=== PATIENT | male | born 1945 | race Caucasian/White ===

== ENCOUNTER 2020-02-03 00:40 | Outpatient (CLI) | payer MEDICARE, BC, OTHER, SELFPAY ==
[2020-02-03 17:08] LABS: SARS-CoV-2 RNA PCR Negative
== END 2020-02-03 00:41 | disposition home or self-care (01) ==
LOC: ANHCOVIDDT 00:41
PROVIDERS: PCP Internal Medicine; Visit Provider Orthopaedic Surgery
DX: Z01.812 Encounter for preprocedural laboratory examination (principal); Z20.828 Contact with and (suspected) exposure to other viral communicable diseases
CPT/HCPCS: 87635; C9803; U0003

== ENCOUNTER 2020-02-06 00:56 | Day surgery (SDC) | payer MEDICARE, BC, OTHER, SELFPAY ==
[2020-01-30 10:41] VITALS: BMI 32.9
[2020-02-06] VITALS (7 sets, daily range): BP systolic 94–136; BP diastolic 48–64; PULSE 73–100; RESP 10–18; TEMP 36–36.3; O2SAT 92–98
--- NOTE | ~2020-02-06 | XR_ITS ---
XR surgery orthopedic 02/06/2020 08:58 Indication: Right hallux valgus correction. Procedure: 3 fluoroscopic views of the right first toe. 10 seconds of fluoroscopy. Comparison: 12/22/2019 Findings: There are surgical changes consistent with right hallux valgus correction. There are associ ated soft tissue changes. Please refer to procedural report for details. Impression: 1: Surgical changes consistent with recent hallux valgus correction. Reviewed, dictated and finalized at location A. Impression: 1: Surgical changes consistent with recent hallux valgus correction.
[2020-02-06] MEDS: ACETAMINOPHEN 500 MG TABLET 1000 MG PO (06:31)
[2020-02-06] MEDS: LACTATED RINGERS 1,000 ML 30 ML IV CONT (06:32)
[2020-02-06] MEDS: KETOROLAC 15 MG/ML VIAL (*BKC) IV PUSH (06:32)
--- NOTE | 2020-02-06 07:01 | WPDANESEPPF ---
Anes - Initial Pre Proc Eval Procedure: Operation Date: 02/06/20 07:30 Proposed Procedures p Right Hallux Valgus Correction, First Metatarsal Osteotomy, Possible Phalangeal Osteotomy - Jorge Bain MD Date/Time: 02/06/20 07:01 Surgeon: Jorge Bain MD Pre Op Diagnosis: Rt Hallux Valgus Patient Data Age: 74 Gender: M Height: 6 ft Weight: 110.25 kg Allergies Allergy/AdvReac Type Severity Reaction Status Date / Time codeine Allergy Unknown Dizziness/HEART Verified 01/30/20 10:37 PALPATATIONS Home Medications Medication Instructions Recorded Confirmed Type acetaminophen-caffeine 500 mg-65 1 tablet PO PRN PRN 01/11/20 01/30/20 History mg tablet ascorbic acid (vitamin C) 500 mg 1,000 mg PO DAILY 01/11/20 01/30/20 History tablet cholecalciferol (vitamin D3) 25 25 mcg PO DAILY 01/11/20 01/30/20 History mcg (1,000 unit) capsule lisinopril 40 mg tablet 40 mg PO DAILY 01/11/20 01/30/20 History hhikfctesauu-fojkjiao-odonqq 1 tablet PO DAILY 01/11/20 01/30/20 History rosuvastatin 10 mg tablet 5 mg PO HS 01/11/20 01/30/20 History tamsulosin 0.4 mg capsule 0.4 mg PO HS 01/11/20 01/30/20 History vitamin B12 500 mcg-folic acid 400 1 tablet PO DAILY 01/11/20 01/30/20 History mcg tablet amlodipine 5 mg PO QAM 01/30/20 01/30/20 History Patient hx anesthesia problems: none Family hx anesthesia problems: none PMFSH Past Medical History Medical History Arthritis Chronic headaches Hallux valgus (acquired), right foot Heart beat abnormality HTN (hypertension) Seasonal allergies Skin cancer Sleep apnea Urinary frequency Family History Family History Mother Family history of diabetes mellitus in first degree relative Diabetes mellitus Hypertension Father Acute myocardial infarction Other Arthritis Cerebrovascular accident Family history of cardiovascular disease Heart disease Social History Social History Smoking packs per day: 1 Smoking cigarettes per day: 20.0 Years smoked: 45 Smoking pack-years: 45.00 Smoking status: Current every day smoker Tobacco type: cigarettes Alcohol intake: current Drinks per week: 2 Alcohol use details: HARD CIDSAMINA Substance use: unknown Living arrangements: with family Gender identity (if verbalized by the patient): Male Spiritual care concerns: No Anes - Eval Final PreProcedure Day of Procedure 02/06/20 07:01 Patient weight: obese Heart: regular rate and rhythm Lungs: clear to auscultation Airway: Mallampati scale class II Neurological: alert and oriented Last oral intake: >/= 8 hours ASA classification: III Emergent: no Anesthetic plan: proceed Anesthesia type and monitoring: general LMA and standard monitoring Informed Consent: The patient's anesthetic plan and its attendant risks and benefits were discussed with the patient/family/POA. Questions were solicited and answers provided to the satisfaction of the patient/family/POA.
--- NOTE | 2020-02-06 07:15 | WPDHPUPDATE1 ---
History and Physical Update Update Date/Time: 02/06/20 07:15 History and Physical has been reviewed, including an updated exam of the patient. There are NO changes in the patient's condition. Covid test negative. Risks, benefits, and alternatives have been discussed and questions answered. Patient agrees to proceed with procedure.
[2020-02-06] MEDS: ceFAZolin 2 GM/D5W 50 ML 2 GM/50 ML BAG IVPB (07:30)
--- NOTE | 2020-02-06 09:14 | PM.PROC ---
Procedure Note - Detailed Date of procedure: 02/06/20 Pre-op diagnosis: Rt Hallux Valgus Post-op diagnosis: same Procedure performed: RT hallux valgus correction- double osteotomy Description of procedure: OPERATIVE INDICATIONS: The patient is a 74 year-old man with right hallux valgus deformity, prominence of the medial eminence, and right foot pain. The patient has failed conservative treatment with shoe inserts, accommodative shoes, activity modifications and medication. The patient has pain with daily activity. Symptoms have caused restriction in the patient's activity. The patient presents for operative treatment. WHAT WAS DONE: After informed consent was given, the operative extremity was marked in the preoperative holding area. The patient received intravenous antibiotics. The patient was brought to the operating room where they underwent a general anesthetic by the anesthesia team. The patient was positioned supine on the operating room table. A time-out was performed confirming the patient, site of the surgery, and the plan for surgery. The right lower extremity was then prepped and draped in the usual sterile surgical fashion using ChloraPrep skin solution. Foot and ankle were exsanguinated and a calf tourniquet was inflated to 225 mmHg pressure. A longitudinal incision was then made along the medial border of the 1st ray centered over the medial eminence with a #15 blade knife. The previous incision was utilized. Hemostasis was controlled with electric cautery. The dorsal and plantar sensory nerves were identified and retracted bluntly. A medial capsulotomy was then performed. This was reflected off the medial eminence. The joint was inspected for evaluation of degenerative changes. A lateral release was then performed through the joint with a #15 blade knife. The medial eminence was then resected with a sagittal saw in line with the medial border of the foot. Correction of the deformity was performed with a chevron-shaped osteotomy performed with sagittal saw from medial to lateral through the distal portion of the 1st metatarsal. The lateral portion of the bone cut was completed with an osteotome to protect the soft tissue. The capital fragment was then translated laterally and impacted on to the 1st metatarsal shaft. Lateral translation and impaction corrected both hallux valgus deformity and correction of the distal metatarsal articular angle. Temporary fixation was performed and alignment was verified with image intensification. Hallux valgus angle correction, intermetatarsal angle correction and distal metatarsal articular angle were verified. Fixation was achieved with 2.0 millimeter bioabsorbable pins. Two pins were utilized. Image intensification confirmed final alignment. Rotation was verified visually. The wound was then thoroughly irrigated with antibiotic solution. The capsule was repaired through a drill hole in the distal 1st metatarsal with 0 Vicryl interrupted suture. The dorsal limb of the capsule was repaired with 00 Vicryl interrupted suture. Subcutaneous tissue was repaired with 000 Monocryl interrupted suture and the skin approximated with 0000 nylon running suture. Local anesthetic with 0.5% Marcaine plain was injected in the soft tissue. Clinically and fluoroscopically there was still hallux valgus interphalangeus present. Proximal phalanx osteotomy was indicated. Medial incision made along the proximal phalanx with 15 blade knife. Hemostasis controlled electrocautery. Dissection down to the medial aspect of the proximal phalanx. Retractors placed. Sagittal saw used to make a medial closing wedge osteotomy transversely across the proximal phalanx. Image intensification confirmed placement of the osteotomy. Fixation was achieved with the Arthrex 10 millimeter x 9 millimeter staple. Good stability and fixation were noted. Image intensification confirmed final alignment of the osteotomy and placement of the hardware. Overall
== END 2020-02-06 10:46 | disposition home or self-care (01) ==
PROVIDERS: PCP Internal Medicine; Visit Provider Orthopaedic Surgery
PROC: (CPT 28299; principal; 2020-02-06 07:30)
DX: M20.11 Hallux valgus (acquired), right foot (principal); I10 Essential (primary) hypertension; G47.30 Sleep apnea, unspecified; F17.210 Nicotine dependence, cigarettes, uncomplicated; E66.9 Obesity, unspecified; Z68.32 Body mass index [BMI] 32.0-32.9, adult
CPT/HCPCS: 28299; A9270; C1713; J0690; J1100; J1885; J2001; J2370; J2405; J2704; J3010; J7120

== ENCOUNTER 2021-03-25 12:30 | Outpatient (RCR) | payer MEDICARE, BC, OTHER, SELFPAY ==
--- NOTE | 2021-03-01 15:20 | PTOPEVAL ---
INITIAL PHYSICAL THERAPY EVALUATION and PLAN OF CARE Thank you for referring Roverto Elizabeth to [facility].? Roverto is scheduled to be seen for physical therapy? 2x/week for 4 weeks. Please review, sign, date and return this plan of care LUZ. I agree with and certify that the following plan of care is medically necessary. Referring Physician Date Admitting Provider: Attending Provider: Dionte Ozuna, Referring Provider: *PT Outpatient Evaluation Start: 03/01/21 14:17 Freq: Status: Active Protocol: Document 03/01/21 14:17 ETTA (Rec: 03/01/21 15:20 ETTA [id number]) Therapy Assessment Status Assessment Status Assessment Status Evaluation Outpatient Past Medical History Past Medical History Source of Past Medical History Recalled from Previous Visit, Confirmed with Patient/Family Neurological History Hx Neurological Disorders No Significant History Cardiovascular History Hx Hypercholesterolemia Yes Hx Hypertension Yes Hx Other Cardiac Disorders Yes: LOOP RECORDER 2018 DR ARELLANO SEES EVERY 6 MONTHS Respiratory History Hx Sleep Apnea Yes: USES CPAP Gastrointestinal History Hx Gastrointestinal Disorders No Significant History Genitourinary History Hx Genitourinary Disorders No Significant History Musculoskeletal History Hx Arthritis Yes: GENERALIZED Hx Orthopedic Surgery Yes: RT ROTATOR CUFF REPAIR ~ 2018 Hx Spinal Surgery Yes: L4-L5 LAMINECTOMY 2006 Hx Other Musculoskeletal Disorders Yes: RT HALLUX VALGUS Hematological History Hx Hematological Disorders No Significant History Endocrine History Hx Endocrine Disorders No Significant History HEENT History Hx Cataracts Yes: BILAT REMOVED Hx Other HEENT Disorders Yes: [place] DOES NOT WEAR HIS HEARING AIDS Integumentary History Hx Excision Skin Lesion Yes: SKIN CA REMOVED FROM FACE Reproductive History Hx Reproductive Disorders No Significant History Psychosocial History Hx Psychiatric Disorders No Significant History Pain History History of Any Previous or Ongoing No Significant History Instance of Pain Anesthesia History Hx Anesthesia Reactions No Significant History Other History Hx Cancer Yes: SKIN CA Hx Implanted Device Yes: LOOP RECORDER Evaluation Information Problem Diagnosis neck pain Onset started a couple of months ago Additional Evaluation Detail took a fall 2 years ago - landed on L side - caught himself with L hand Subjective Information Began to get headaches coming Query Text:As Reported By Javier
--- NOTE | 2021-03-25 13:31 | PTOPEVAL ---
PHYSICAL THERAPY DISCHARGE SUMMARY Thank you for referring Roverto Elizabeth to [facility].? Kota has been seen x 8 visits in PT. Goals have been met. He is to continue with his HEP and with increase in postural awareness with his usual activities. He is ready for d/c from PT to HEP. I agree with Kota's discharge from PT. Referring Physician Date Admitting Provider: Attending Provider: Dionte Ozuna, MD Referring Provider: Therapy Assessment Status Assessment Status Assessment Status Discharge Evaluation Information Problem Diagnosis neck pain Subjective Information Kota reports that he has only Query Text:As Reported By Patient/ had 1 headache in last week. Family Sleeping well, no increase c/o 's neck pain upon waking up. 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 Pain Assessment Timing of Pain Assessment Timing of Pain Assessment Assessment Pain Scale Pain Scale Used Numeric (1 - 10) Self Report Pain Assessment Neck Reported Pain Level 1 Lowest Pain Intensity 1 Greatest Pain Intensity 4 Cervical and Lumbar ROM Cervical ROM Cervical Flexion (0-60) 40 Query Text:Active in Degrees Cervical Extension (0-70) 20 Query Text:Active in Degrees Cervical Lateral Flexion Right (0-50) 15 Query Text:Active in Degrees Cervical Lateral Flexion Left (0-50) 15 Query Text:Active in Degrees Cervical Rotation Right (0-90) 40 Query Text:Active in Degrees Cervical Rotation Left (0-90) 48 Query Text:Active in Degrees Cervical and Lumbar Muscle Testing Cervical Muscle Testing Deep Cervical Flexion 1 min 13 sec Palpation Assessment Palpation Palpation very mild P-A motion now present T3-C5 - but no tenderness present lateral glides - mild decrease with C5/6 L to R as compared to R to L, overall moderate decrease in mobility Decreased suboccipital tissue tension- symmetrical in nature Decrease with L cervical soft tissue tension - almost symmetrical to R side General Exercise General Exercises Exercise Location scapular/ cervical Exercise Description Theraslide - orange tubing Query Text:Record Sets, Reps, - latissimus pull downs x 15 Resistance, and Position x2 - middle trap x 15 x 2 - lower trap x 15 x 2
== END 2021-03-26 10:08 | disposition home or self-care (01) ==
LOC: ANHHIPT 12:30
PROVIDERS: PCP Internal Medicine; Visit Provider Internal Medicine
DX: M54.2 Cervicalgia (principal)
CPT/HCPCS: 97110; 97140; 97162